=== PATIENT | female | born 1980 | race Caucasian/White ===

== ENCOUNTER 2018-06-17 21:07 | Emergency (ER) | payer OTHER ==
[2018-06-17] MEDS: LORAZEPAM 2 MG INJ IV ×2 (21:50→22:45)
[2018-06-17] MEDS: CHLORDIAZEPOXIDE 25 MG CAP PO (22:45)
== END 2018-06-17 23:01 | disposition home or self-care (01) ==
LOC: E/R 21:07
DX: F19.239 Other psychoactive substance dependence with withdrawal, unspecified (principal); R40.2252 Coma scale, best verbal response, oriented, at arrival to emergency department; R40.2362 Coma scale, best motor response, obeys commands, at arrival to emergency department; R40.2142 Coma scale, eyes open, spontaneous, at arrival to emergency department
CPT/HCPCS: 81025; 96374; 96376; 99284-25